=== PATIENT | female | born 1975 | race Caucasian/White ===

== ENCOUNTER 2018-05-26 22:16 | Emergency (ER) | payer OTHER, MEDICAID ==
[~2018-05-26] VITALS: Ht 160 cm; Wt 79.4 kg
[2018-05-26 22:20] VITALS: BP 116/71
--- NOTE | 2018-05-26 22:35 | NUR ---
PT AMBULATED TO BED 04.
--- NOTE | 2018-05-26 22:44 | NUR ---
PT PRESENTS TO ED WITH C/O RLQ PAIN SUDDEN ONSET X 1400 TODAY WITH NAUSEA. RLQ IS TENDER AND PT REPORTS PAIN UPON PALPATION. PT DENIES V/D. BOWEL SOUNDS ACTIVE TO ALL QUADRANTS. PT PLACED INTO BED, PENDING MD FLANNERY. NO S/S OF DISTRESS AT THIS TIME. PMH--RT LOBE CALCIFICATION, MIGRAINES, ANXIETY RX-SUMITRIPTAN, ATIVAN
[2018-05-26] MEDS ORDERED: ONDANSETRON 4 MG/2 ML VIAL IVP ONE (22:50)
[2018-05-26] MEDS ORDERED: KETOROLAC 30 MG/ML VIAL IVP ONE (22:50)
--- NOTE | 2018-05-26 23:11 | NUR ---
PT TO CT VIA WC
[2018-05-26 23:12] LABS: BASOPHILS # (AUTO) 0.1 K/uL (0.00-0.22); BASOPHILS % (AUTO) 0.9 % (0.0-2.0); EOSINOPHILS # (AUTO) 0.1 K/uL (0-0.4); EOSINOPHILS % (AUTO) 0.6 % (0.0-4.0); HEMATOCRIT 40.3 % (36-48); HEMOGLOBIN 13.1 g/dL (12.0-16.0); LYMPHOCYTES # (AUTO) 3.3 K/uL (2.5-16.5); LYMPHOCYTES % (AUTO) 28.4 % (20.5-51.1); MEAN CORPUSCULAR HEMOGLOBIN 28 pg (27-31); MEAN CORPUSCULAR HGB CONC 33 g/dL (33-37); MEAN CORPUSCULAR VOLUME 86.2 fL (80-94); MONOCYTES # (AUTO) 0.5 K/uL (0.8-1.0); MONOCYTES % (AUTO) 4.6 % (1.7-9.3); NEUTROPHILS # (AUTO) 7.6 K/uL (1.8-7.7); NEUTROPHILS % (AUTO) 65.5 % (42.2-75.2); PLATELET COUNT (AUTO) 294 K/uL (140-450); RED BLOOD CELL COUNT(AUTO) 4.68 MIL/uL (4.20-5.40); RED CELL DISTRIBUTION WIDTH 13.4 % (11.6-13.7); WHITE BLOOD COUNT (AUTO) 11.6 K/uL (4.8-10.8)
[2018-05-26 23:22] LABS: ANION GAP 12.9 (8-16); CARBON DIOXIDE 26.1 mmol/L (21-32); CREATININE 0.8 mg/dL (0.6-1.3)
[2018-05-26 23:28] LABS: ALBUMIN 3.9 g/dL (3.4-5.0); TOTAL BILIRUBIN 0.2 mg/dL (0.0-1.0)
[2018-05-26 23:31] LABS: APPEARANCE,URINE SLIGHTLY HAZY (CLEAR); BILIRUBIN,URINE NEGATIVE (NEGATIVE); BLOOD, URINE 2+ (NEGATIVE); COLOR,URINE YELLOW (YELLOW); LEUKOCYTE ESTERASE ,URINE NEGATIVE (NEGATIVE); NITRITE, URINE NEGATIVE (NEGATIVE); PH,URINE 6.5 (5.0-9.0); UGLUCOSE NEGATIVE (NEGATIVE)
[2018-05-26 23:32] LABS: RBC,URINE 0-5 (RARE) /HPF (0-5); WBC,URINE 0-5 (RARE) /HPF (0-5)
--- NOTE | 2018-05-27 00:36 | NUR ---
Pt lying on gurney, remains AOX4, GCS 15. reports pain is subsiding 2/.
--- NOTE | 2018-05-27 00:40 | NUR ---
DR PRADHAN AT BEDSIDE EVALUATING PT
[2018-05-27 01:03] VITALS: BP 121/77
--- NOTE | 2018-05-27 01:03 | NUR ---
Patient discharged with v/s stable. Written and verbal after care instructions given and explained. Patient verbalized understanding. Ambulatory with steady gait. All questions addressed prior to discharge. Advised to follow up with PMD.
== END 2018-05-27 01:03 | disposition home or self-care (01) ==
LOC: MED 22:37
DX: R10.31 Right lower quadrant pain (principal); Z90.710 Acquired absence of both cervix and uterus
CPT/HCPCS: 36415; 74176; 80053; 81001; 81025; 83690; 85025; 87086; 96374; 96375; 99284; J1885; J2405